=== PATIENT | male | born 2000 | race African-American/Black ===

== ENCOUNTER 2023-05-26 13:19 | Emergency (ER) | payer OTHER ==
[~2023-05-26] VITALS: Ht 185.4 cm; Wt 72.6 kg
[2023-05-26 15:28] VITALS: BP 125/80; TEMP 98.4; O2SAT 100
== END 2023-05-26 15:21 | disposition home or self-care (01) ==
LOC: ER 13:24
DX: T17.228A Food in pharynx causing other injury, initial encounter (principal); W44.F3XA Food entering into or through a natural orifice, initial encounter; Y93.89 Activity, other specified; Y92.218 Other school as the place of occurrence of the external cause; Y99.8 Other external cause status
CPT/HCPCS: 70360-TC; 71045-TC